=== PATIENT | male | born 1990 | race Caucasian/White ===

== ENCOUNTER 2016-09-05 18:39 | Emergency (ER) | payer OTHER ==
[~2016-09-05] VITALS: Ht 147.3 cm; Wt 74.5 kg
[~2016-09-05 18:39] MED LIST: IBUP-103 PO
[2016-09-05 18:43] VITALS: TEMP 36.6; Ht 147.3 cm; Wt 74.5 kg
[2016-09-05] MEDS ORDERED: SODIUM CHLORIDE 0.9% 1000ML 1,000 ML IV STA (18:56)
[2016-09-05] MEDS ORDERED: GI COCKTAIL PO STA (18:56)
[2016-09-05] MEDS ORDERED: FAMOTIDINE 20 MG TAB PO STA (18:56)
[2016-09-05] MEDS ORDERED: SUCRALFATE 1 GM TAB PO STA (18:56)
--- NOTE | 2016-09-05 18:57 | EMERGENCY ROOM VISIT NOTE ---
History Report prepared by Rene: Mony Rhodes Under the Supervision of: Dr. Mitesh Mills M.D. First contact with patient: 18:49 Chief Complaint: PAIN (GENERALIZED) Stated Complaint: PAIN IN JAW TRAVELS TO CHEST,SORE THROAT History of Present Illness The patient is a 26 year old male who presents to the Emergency Room with complaints of a constant sore throat beginning 1 week ago. The patient states that over the last week his pain has worsened and has traveled into his jaw and is now into his chest. He reports a history of hypertension and denies any personal cardiac history. He complains of jaw pain, difficulty swallowing on the right side, and chest pain. The patient notes that he has a family history of heart disease and his mother had a heart attack at 38 years old. He describes his chest pain and notes that it feels like he was punched in the chest. He notes that his pain is worsened when he takes a deep breath. Source of History: patient Onset: 1 week ago Position: throat Quality: other (sore) Timing: constant Modifying Factors (Worsening): breathing (deep) Associated Symptoms: + chest pain Note: Pt complains of jaw pain and difficulty swallowing. Review of Systems See HPI for pertinent positives & negatives. A total of 10 systems reviewed and were otherwise negative. 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 kidney (3) Kidney stone (4) Renal colic (5) Ureteral calculus, right (6) UTI (lower urinary tract infection) Surgical Problems: (1) H/O lithotripsy (2) History of mandibular surgery (3) History of tonsillectomy and adenoidectomy Family History Heart disease Social History Smoking Status: Never Smoker Drug Use: none Marital Status: in relationship Housing Status: lives with significant other Occupation Status: employed Current/Historical Medications Scheduled Famotidine (Pepcid), 40 MG PO HS Scheduled PRN Hydrocodone W/ Homatropine (Hycodan 5/1.5MG 5 Ml), 5 ML PO HS PRN for Pain Allergies Coded Allergies: No Known Allergies (Verified , 01/18/16) Physical Exam Vital Signs Date Time Temp Pulse Resp B/P Pulse Ox O2 Delivery O2 Flow Rate FiO2 09/05/16 21:23 78 18 124/72 98 09/05/16 20:48 72 18 135/97 98 Room Air 09/05/16 19:48 76 18 137/102 96 Room Air 09/05/16 19:17 98 Room Air 09/05/16 19:17 98 Room Air 09/05/16 19:13 93 09/05/16 18:43 36.6 79 18 204/121 97 Room Air Physical Exam GENERAL: Patient is a healthy-appearing well-nourished HEAD: Normocephalic atraumatic EYES: Ocular movements intact pupils equal and react to light OROPHARYNX mucous membranes are moist no exudates present no erythema or edema present NECK: Supple no nuchal rigidity CHEST: Good equal expansion LUNGS: Clear and equal to auscultation CARDIAC: Normal S1 and S2 ABDOMEN: Soft nontender no guarding BACK: No CVA tenderness EXTREMITIES: No pain upon palpation normal muscle strength in all groups no clubbing cyanosis or edema NEURO: Patient is following commands is answering questions appropriately. Alert and oriented x3 Cranial Nerves 2-12 grossly intact Medical Decision & Procedures ER Provider Diagnostic Interpretation: Radiology results as stated below per my review and radiologist interpretation: SOFT TISSUE NECK FINDINGS: The trachea is midline and is patent. Straightening of the cervical spine. Prevertebral soft tissues and the epiglottis are normal in thickness. No radiopaque foreign bodies. The contours of the hypopharynx are within normal limits. IMPRESSION: No significant abnormality within the neck. Electronically signed by: Ashkan Starkey M.D. 09/05/2016 8:16 PM Dictated Date/Time: 09/05/2016 8:14 PM CHEST CTA for AORTIC DISSECTION FINDINGS: Normal caliber thoracic aorta with no evidence for dissection. No pleural or pericardial effusions. The heart is normal in size. The central pulmonary arteries are patent. 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 No mediastinal or hilar lymphadenopathy. The visualized liver, spleen, and adrenal glands are within normal limits. Severe right hydronephrosis has improved. This is considered a chronic finding. No fractures within the visualized osseous structures. No pneumothorax. The central airways are patent. Small peripheral densities seen within the lung bases favor atelectasis. IMPRESSION: 1. No evidence for an aortic dissection. 2. Small peripheral densities within the lung bases favor atelectasis. 3. Improvement in the severe chronic right-sided hydronephrosis. 4. The central pulmonary arteries are patent. Electronically signed by: Ashkan Starkey M.D. 09/05/2016 7:56 PM Dictated Date/Time: 09/05/2016 7:49 PM Laboratory Results 09/05/16 19:10 Red Blood Count 5.05, Mean Corpuscular Volume 88.5, Mean Corpuscular Hemoglobin 30.9, Mean Corpuscular Hemoglobin Concent 34.9, Mean Platelet Volume 9.5, Neutrophils (%) (Auto) 57.9, Lymphocytes (%) (Auto) 32.5, Monocytes (%) (Auto) 6.9, Eosinophils (%) (Auto) 1.8, Basophils (%) (Auto) 0.9, Neutrophils # (Auto) 3.16, Lymphocytes # (Auto) 1.78, Monocytes # (Auto) 0.38, Eosinophils # (Auto) 0.10, Basophils # (Auto) 0.05 09/05/16 19:10 Test 09/05/16 19:10 09/05/16 19:18 White Blood Count 5.47 K/uL (4.8-10.8) Red Blood Count 5.05 M/uL (4.7-6.1) Hemoglobin 15.6 g/dL (14.0-18.0) Hematocrit 44.7 % (42-52) Mean Corpuscular Volume 88.5 fL (80-100) Mean Corpuscular Hemoglobin 30.9 pg (25-34) Mean Corpuscular Hemoglobin Concent 34.9 g/dl (32-36) Platelet Count 255 K/uL (130-400) Mean Platelet Volume 9.5 fL (7.4-10.4) Neutrophils (%) (Auto) 57.9 % Lymphocytes (%) (Auto) 32.5 % Monocytes (%) (Auto) 6.9 % Eosinophils (%) (Auto) 1.8 % Basophils (%) (Auto) 0.9 % Neutrophils # (Auto) 3.16 K/uL (1.4-6.5) Lymphocytes # (Auto) 1.78 K/uL (1.2-3.4) Monocytes # (Auto) 0.38 K/uL (0.11-0.59) Eosinophils # (Auto) 0.10 K/uL (0-0.5) Basophils # (Auto) 0.05 K/uL (0-0.2) RDW Standard Deviation 40.9 fL (36.4-46.3) RDW Coefficient of Variation 12.7 % (11.5-14.5) Immature Granulocyte % (Auto) 0.0 % Immature Granulocyte # (Auto) 0.00 K/uL (0.00-0.02) Est Creatinine Clear Calc Drug Dose 102.0 ml/min Estimated GFR () 136.1 Estimated GFR (Non- 117.5 BUN/Creatinine Ratio 11.1 (10-20) Calcium Level 9.0 mg/dl (8.5-10.1) Total Bilirubin 0.3 mg/dl (0.2-1) Direct Bilirubin 0.1 mg/dl (0-0.2) Aspartate Amino Transf (AST/SGOT) 14 U/L (15-37) Alanine Aminotransferase (ALT/SGPT) 31 U/L (12-78) Alkaline Phosphatase 71 U/L (45-117) Total Creatine Kinase 170 U/L (39-308) Creatine Kinase MB 1.5 ng/ml (0.5-3.6) Creatine Kinase MB Ratio 0.9 (0-3.0) Troponin I < 0.015 ng/ml (0-0.045) Total Protein 7.1 gm/dl (6.4-8.2) Albumin 3.9 gm/dl (3.4-5.0) Lipase 139 U/L (73-393) Bedside Hemoglobin 14.3 g/dl (14.0-18.0) Bedside Hematocrit 42 % (42-52) Bedside Sodium 141 mEq/L (135-144) Bedside Potassium 3.7 mEq/L (3.3-5.0) Bedside Chloride 102 mEq/L (101-112) Bedside Total CO2 23 mEq/l (24-31) Anion Gap 21.0 mmol/L (16-25) Bedside Blood Urea Nitrogen 9 mg/dl (7-18) Bedside Creatinine 0.8 mg/dl (0.6-1.3) Bedside Glucose (other) 126 mg/dl (70-99) Bedside Ionized Calcium ([place]) 1.20 mmol/l (1.12-1.32) Labs reviewed by ED physician. Medications Administered Medications (Trade) Dose Ordered Sig/Rudy Route Start Time Stop Time Status Last Admin Dose Admin Sodium Chloride (Nss 1000ml) 1,000 ml @ 999 mls/hr Q1H1M STAT IV 09/05/16 18:56 09/05/16 19:56 DC 09/05/16 19:09 999 MLS/HR Famotidine (Pepcid Tab) 20 mg NOW STAT PO 09/05/16 18:56 09/05/16 18:59 DC 09/05/16 19:09 20 MG Sucralfate (Carafate Tab) 1 gm NOW STAT PO 09/05/16 18:56 09/05/16 18:59 DC 09/05/16 19:09 1 GM Al Hydroxide/Mg Hydroxide (Maalox Susp) 30 ml STK-MED ONCE .ROUTE 09/05/16 19:03 09/05/16 19:04 DC 09/05/16 19:08 30 ML Lidocaine HCl (Viscous Lidocaine 2% Soln) 20 ml STK-MED ONCE .ROUTE 09/05/16 19:04 09/05/16 19:05 DC 09/05/16 19:08 20 ML Hydrocodone Bit/ Homatropine Methylb (Hycodan Elix Homepack 5/1.5MG/ 5ML) 1 homepack UD ONCE PO 09/05/16 21:15 09/05/16 21:16 DC 09/05/16 21:08 1 HOMEPACK Hydrocodone Bit/ Homatropine Methylb (Hycodan Syrup) 5 ml NOW STAT PO 09/05/16 21:03 09/05/16 21:04 DC 09/05/16 21:08 5 ML ECG Indication: chest pain Rate (beats per minute): 74 Rhythm: normal sinus Findings: no acute ischemic change, no ectopy ED Course 1848: Past medical records reviewed. The patient was evaluated in room A12B. A complete history and physical examination was performed. 1855: Carafate Tab 1gm PO, Pepcid Tab 20mg PO, GI Cocktail 24ml PO, Sodium Chloride 1000 ml @ 999 mls/hr IV. 2100: I reevaluated the patient and he is resting comfortably. 2102: Hycodan Syrup 5ml PO. 2114: Hydrocodone Bit/Homatropine Methylb 1 homepack PO. 2116: Upon reexamination the patient is doing well. I discussed results and treatment plan with the patient. He verbalizes agreement and understanding. The patient is ready for discharge. Medical Decision Differential diagnosis: Etiologies such as cardiac ischemia, aortic dissection, pulmonary embolism, pneumonia, pneumothorax, musculoskeletal, infections, pericarditis, myocarditis , esophageal rupture, gastrointestinal, as well as others were entertained. This is a 18-year-old male who presents emergency department complaining of throat and chest pain. The patient reports he began having throat pain that steadily moved down into his chest area. The patient states he takes no medication however he then stated he does take Pepcid. He was given a GI cocktail, Pepcid and Carafate. Repeat examination revealed improvement patient' s symptoms. I will note that the patient was evaluated for chest pain here back in March and based on this I felt that the patient could follow-up with cardiology. As the pain is been going on for several days and expect his troponin to be elevated if this were related to cardiac ischemia. As such it is not. The patient also has a normal EKG. He was sent for CAT scan of the chest due to his hypertension. This did not show any acute process. I believe based on these findings at the patient can be safely discharged home. He will be given Hycodan for the throat pain and I recommended a clear liquid diet along with Maalox for the next 48 hours. Patient was in agreement with the treatment plan. Impression Primary Impression: Throat pain Scribe Attestation The scribe's documentation has been prepared under my direction and personally reviewed by me in its entirety. I confirm that the note above accurately reflects all work, treatment, procedures, and medical decision making performed by me. Departure Information Dispostion Home / Self-Care Prescriptions Hydrocodone W/ Homatropine (HYCODAN 5/1.5MG 5 ML) 1 Syp Syp 5 ML PO HS Y for Pain, #120 ML Prov: Mitesh Mills MD 09/05/16 Famotidine (Pepcid) 40 Mg Tab 40 MG PO HS for 10 Days, #10 TAB Prov: Mitesh Mills MD 09/05/16 Referrals Herbie Torre M.D. (PCP) Forms HOME CARE DOCUMENTATION FORM, IMPORTANT VISIT INFORMATION, WORK / SCHOOL INSTRUCTIONS Patient Instructions Chest Pain - [facility], Hypertension Fl, My [facility] Additional Instructions Clear liquid diet next 48 hours Take 5 ml Maalox before every meal and at bedtime Need follow up with DR Guzmán's office No strenuous activity until follow up Need follow up with DR Torre for hypertension You have been examined and treated today on an emergency basis only. This is not a substitute for, or an effort to provide, complete comprehensive medical care. It is impossible to recognize and treat all injuries or illnesses in a single emergency department visit. It is therefore important that you follow up closely with Dr Torre. Call as soon as possible for an appointment. Thank you for your time and consideration. I look forward to speaking with you again soon. Please don't hesitate to call us if you have any questions.
[2016-09-05] MEDS ORDERED: ALUMINUM/MAGNESIUM SUSP 30 ML UDC ONE (19:03)
[2016-09-05] MEDS ORDERED: LIDOCAINE HCL 2% VISC SOLN 20 ML UDC ONE (19:04)
[2016-09-05] MEDS ORDERED: OPTIRAY 320 IV PRN (19:15)
[2016-09-05 19:17] VITALS: O2SAT 98
[2016-09-05 19:21] LABS: BASO % 0.9 %; BASO ABS # 0.05 K/uL (0-0.2); COMPLETE YES; EOS % 1.8 %; HEMATOCRIT 44.7 % (42-52); LYMPH % 32.5 %; LYMPH ABS # 1.78 K/uL (1.2-3.4); MEAN CELL VOLUME 88.5 fL (80-100); MEAN CORPUSCULAR HEMOGLOBIN 30.9 pg (25-34); MEAN CORPUSCULAR HGB CONC 34.9 g/dl (32-36); MEAN PLATELET VOLUME 9.5 fL (7.4-10.4); MONO % 6.9 %; NEUT % 57.9 %; PLATELET COUNT 255 K/uL (130-400); RED BLOOD COUNT 5.05 M/uL (4.7-6.1); WHITE BLOOD COUNT 5.47 K/uL (4.8-10.8)
[2016-09-05 19:33] LABS: ISTAT CREATININE 0.8 mg/dl (0.6-1.3); ISTAT HEMOGLOBIN 14.3 g/dl (14.0-18.0); ISTAT IONIZED CALCIUM 1.2 mmol/l (1.12-1.32)
[2016-09-05 19:42] LABS: ALT/SGPT 31 U/L (12-78); AST/SGOT 14 U/L (15-37); BLOOD UREA NITROGEN 10 mg/dl (7-18); BUN/CREATININE RATIO 11.1 (10-20); CARBON DIOXIDE 27 mmol/L (21-32); CHLORIDE 107 mmol/L (98-107); CREATININE 0.87 mg/dl (0.60-1.40); GLUCOSE 122 mg/dl (70-99); POTASSIUM 3.7 mmol/L (3.5-5.1); SODIUM 141 mmol/L (136-145)
[2016-09-05 19:47] LABS: ALKALINE PHOSPHATASE 71 U/L (45-117); CKMB/CK RATIO 0.9 (0-3.0)
--- NOTE | 2016-09-05 19:58 | DIAGNOSTIC IMAGING REPORT ---
CHEST CTA for AORTIC DISSECTION CT DOSE: 698.09 mGy.cm HISTORY: Atypical chest pain. TECHNIQUE: Multiaxial CT images of the chest were performed both before and after the intravenous administration of contrast to evaluate the aorta. Maximal intensity projection images were also obtained. COMPARISON STUDY: Abdomen and pelvis CT 11/04/2015. FINDINGS: Normal caliber thoracic aorta with no evidence for dissection. No pleural or pericardial effusions. The heart is normal in size. The central pulmonary arteries are patent. 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 No mediastinal or hilar lymphadenopathy. The visualized liver, spleen, and adrenal glands are within normal limits. Severe right hydronephrosis has improved. This is considered a chronic finding. No fractures within the visualized osseous structures. No pneumothorax. The central airways are patent. Small peripheral densities seen within the lung bases favor atelectasis. IMPRESSION: 1. No evidence for an aortic dissection. 2. Small peripheral densities within the lung bases favor atelectasis. 3. Improvement in the severe chronic right-sided hydronephrosis. 4. The central pulmonary arteries are patent. Electronically signed by: Ashkan Starkey M.D. 09/05/2016 7:56 PM Dictated Date/Time: 09/05/2016 7:49 PM
--- NOTE | 2016-09-05 20:18 | DIAGNOSTIC IMAGING REPORT ---
SOFT TISSUE NECK CLINICAL HISTORY: Neck pain. COMPARISON STUDY: None. FINDINGS: The trachea is midline and is patent. Straightening of the cervical spine. Prevertebral soft tissues and the epiglottis are normal in thickness. No radiopaque foreign bodies. The contours of the hypopharynx are within normal limits. IMPRESSION: No significant abnormality within the neck. Electronically signed by: Ashkan Starkey M.D. 09/05/2016 8:16 PM Dictated Date/Time: 09/05/2016 8:14 PM
[2016-09-05] MEDS ORDERED: HYDROCODONE/HOMATROPINE SYRUP 5MG/1.5MG 5ML UDP PO STA (21:03)
[2016-09-05] MEDS ORDERED: HYDR5SYP11 PO (21:04)
[2016-09-05] MEDS ORDERED: FAMO40TA6 PO (21:04)
[2016-09-05] MEDS ORDERED: HYCODAN 60ML BOTTLE HOMEPACK PO ONE (21:15)
[2016-09-05 21:23] VITALS: BP 124/72; PULSE 78; O2SAT 98
== END 2016-09-05 21:25 | disposition home or self-care (01) ==
LOC: C.EDB 18:41 → C.EDA 21:25
DX: R07.0 Pain in throat (principal); Z87.442 Personal history of urinary calculi; Z87.440 Personal history of urinary (tract) infections; Z98.890 Other specified postprocedural states; Z82.49 Family history of ischemic heart disease and other diseases of the circulatory system

== ENCOUNTER 2017-02-01 19:33 | Emergency (ER) | payer OTHER ==
[~2017-02-01] VITALS: Ht 147.3 cm; Wt 72.8 kg
[2017-02-01 19:56] VITALS: TEMP 36.7; Ht 147.3 cm; Wt 72.8 kg
[2017-02-01] MEDS ORDERED: KETOROLAC TROMETHAMINE 30 MG/ML VIAL IV STA (21:19)
[2017-02-01] MEDS ORDERED: HYDROmorphone INJ 0.5 MG/0.5 ML SYR IV PRN (21:30)
[2017-02-01 21:54] LABS: URINE APPEARANCE CLOUDY (CLEAR); URINE BILIRUBIN NEG (NEG); URINE COLOR YELLOW; URINE NITRITE NEG (NEG); URINE PH 6.5 (4.5-7.5); URINE SPECIFIC GRAVITY 1.022 (1.000-1.030); UROBILINOGEN NEG (NEG); ZZUR CULT IF INDIC CLEAN CATCH NO
[2017-02-01 22:00] LABS: BASO % 0.9 %; BASO ABS # 0.06 K/uL (0-0.2); COMPLETE YES; EOS % 2.1 %; HEMATOCRIT 46.2 % (42-52); IG% 0.2 %; LYMPH % 29.8 %; LYMPH ABS # 1.95 K/uL (1.2-3.4); MEAN CELL VOLUME 88.5 fL (80-100); MEAN CORPUSCULAR HEMOGLOBIN 30.7 pg (25-34); MEAN CORPUSCULAR HGB CONC 34.6 g/dl (32-36); MEAN PLATELET VOLUME 9.3 fL (7.4-10.4); MONO % 7.5 %; NEUT % 59.5 %; PLATELET COUNT 215 K/uL (130-400); RED BLOOD COUNT 5.22 M/uL (4.7-6.1); WHITE BLOOD COUNT 6.55 K/uL (4.8-10.8)
[2017-02-01 22:12] LABS: MANUAL MICROSCOPIC REQUIRED? NO; REVIEW REQ? NO
[2017-02-01 22:17] LABS: ALT/SGPT 36 U/L (12-78); BLOOD UREA NITROGEN 16 mg/dl (7-18); BUN/CREATININE RATIO 18.5 (10-20); CALCIUM 8.9 mg/dl (8.5-10.1); CARBON DIOXIDE 28 mmol/L (21-32); CHLORIDE 109 mmol/L (98-107); CREATININE 0.86 mg/dl (0.60-1.40); GLUCOSE 137 mg/dl (70-99); POTASSIUM 3.4 mmol/L (3.5-5.1); SODIUM 142 mmol/L (136-145)
[2017-02-01 22:19] LABS: ALKALINE PHOSPHATASE 70 U/L (45-117); AST/SGOT 21 U/L (15-37)
[2017-02-01] MEDS ORDERED: IBUP-1050 PO (22:19)
--- NOTE | 2017-02-01 23:22 | DIAGNOSTIC IMAGING REPORT ---
ABD/PELVIS WITHOUT FOR STONE CLINICAL HISTORY: 27 years-old Male presenting with right flank pain. TECHNIQUE: Multidetector CT of the abdomen and pelvis was performed without the use of intravenous contrast. IV contrast: None. A dose lowering technique was used consistent with the principles of ALARA (as low as reasonably achievable). COMPARISON: 11/04/2015. CT DOSE (mGy.cm): The estimated cumulative dose is 360.75 mGy.cm. FINDINGS: Financial Analysis Consultant topogram: Unremarkable. Lung bases: Lung bases clear. Normal heart size. No pericardial or pleural effusion. Liver: Normal morphology. Normal density. Biliary: No gross biliary ductal dilatation allowing for noncontrast technique. Gallbladder decompressed. Pancreas: Normal noncontrast appearance. Spleen: Normal noncontrast appearance. Adrenal glands: Normal noncontrast appearance. Kidneys and ureters: Chronic severe right hydroureteronephrosis without gross evidence of an obstructing mass or calculus. The right renal collecting system is overall less dilated than on prior exam. Prominent right lower pole nephrolithiasis. Urothelial thickening noted on the right, overall similar to prior. No perinephric or periureteral fat stranding. Chronic cortical thinning evidence of atrophy on the right. Multiple nonobstructing left renal calculi, the largest at the lower pole measuring 3 mm. No left hydronephrosis. Left ureter normal. Well-defined hypodensity in the left kidney anteriorly near the upper pole, indeterminate but likely cyst, unchanged. Bladder: Incompletely evaluated secondary to underdistention. Pelvic organs: Prostate and seminal vesicles normal. Bowel: Normal appendix. No bowel obstruction. Peritoneal cavity: No free fluid or intraperitoneal gas. Lymph nodes: No gross lymphadenopathy allowing for noncontrast technique. Vasculature: Normal noncontrast appearance. Abdominal wall: Normal. Musculoskeletal: Normal. IMPRESSION: 1. Chronic severe right hydroureteronephrosis with an overall less distended right renal collecting system than on prior exam. Chronic urothelial thickening and right renal atrophy. No findings to suggest acute upper tract infection or recent passage of a calculus. No obstructing mass or stone. 2. Bilateral nephrolithiasis. Electronically signed by: Uziel Murray M.D. 02/01/2017 11:20 PM Dictated Date/Time: 02/01/2017 11:13 PM
[2017-02-01] MEDS ORDERED: OXYCODONE IR HOME PACK PO ONE (23:45)
[2017-02-01] MEDS ORDERED: OXYC1TAB3 PO (23:46)
[2017-02-02 00:01] VITALS: BP 156/97; PULSE 84; O2SAT 94
--- NOTE | 2017-02-02 03:31 | EMERGENCY ROOM VISIT NOTE ---
History Report prepared by Rene: Huan Torres Under the Supervision of: Dr. Everette Brown M.D. First contact with patient: 20:48 Chief Complaint: FLANK PAIN Stated Complaint: SEVER PAIN IN LOWER RIGHT SIDE OF BACK History of Present Illness The patient is a 27 year old male who presents to the Emergency Room with complaints of constant right flank and back pain. He currently rates his discomfort as a 9/10 in severity. The patient states that the pain is similar to his past kidney stones, and he states that the last kidney stone he had was a year ago. He states that he took Tylenol and ibuprofen this morning. Pt denies LOC, headache, fevers, chills, diaphoresis, visual changes, neck pain, chest pain, breathing difficulties, nausea, vomiting, abdominal pain, melena, hematochezia, urinary symptoms, numbness, weakness, lymphadenopathy, rash, or other complaints. Source of History: patient Onset: yesterday Position: back (right), other (right flank) Symptom Intensity: 910 Timing: constant Review of Systems See HPI for pertinent positives and negatives. A total of ten systems were reviewed and were otherwise negative. 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 kidney (3) Kidney stone (4) Renal colic (5) Ureteral calculus, right (6) UTI (lower urinary tract infection) Surgical Problems: (1) H/O lithotripsy (2) History of mandibular surgery (3) History of tonsillectomy and adenoidectomy Family History Heart disease Social History Smoking Status: Never Smoker Drug Use: none Marital Status: in relationship Housing Status: lives with significant other Occupation Status: employed Current/Historical Medications Scheduled PRN Ibuprofen (Advil), 200-600 MG PO Q4H PRN for Pain Oxycodone Ir (Roxicodone Ir), 1-2 TAB PO Q4H PRN for Pain Allergies Coded Allergies: No Known Allergies (Verified , 02/01/17) Physical Exam Vital Signs Date Time Temp Pulse Resp B/P (MAP) Pulse Ox O2 Delivery O2 Flow Rate FiO2 02/02/17 00:01 84 18 156/97 94 Room Air 02/01/17 23:36 88 18 152/93 97 02/01/17 21:44 80 02/01/17 21:34 81 18 152/99 94 Room Air 02/01/17 19:56 36.7 88 20 157/90 96 Room Air Physical Exam GENERAL: Awake, alert, well-appearing, in no distress HENT: Normocephalic, atraumatic. Oropharynx unremarkable. EYES: Normal conjunctiva. Sclera non-icteric. NECK: Supple. No nuchal rigidity. FROM. No JVD. RESPIRATORY: Clear to auscultation. CARDIAC: Regular rate, normal rhythm. Extremities warm and well perfused. Pulses equal. ABDOMEN: Soft, non-distended. No tenderness to palpation. No rebound or guarding. No masses. RECTAL: Deferred. MUSCULOSKELETAL: Chest examination reveals no tenderness. The back is symmetrical on inspection without obvious abnormality. Right CVA tenderness. No joint edema. LOWER EXTREMITIES: Calves are equal size bilaterally and non-tender. No edema. No discoloration. NEURO: Normal sensorium. No sensory or motor deficits noted. SKIN: No rash or jaundice noted. Medical Decision & Procedures ER Provider Diagnostic Interpretation: Radiology results as stated below per my review and radiologist interpretation: ABD/PELVIS WITHOUT FOR STONE CLINICAL HISTORY: 27 years-old Male presenting with right flank pain. TECHNIQUE: Multidetector CT of the abdomen and pelvis was performed without the use of intravenous contrast. IV contrast: None. A dose lowering technique was used consistent with the principles of ALARA (as low as reasonably achievable). COMPARISON: 11/04/2015. CT DOSE (mGy.cm): The estimated cumulative dose is 360.75 mGy.cm. FINDINGS: Hot Knife Fox[place] Cutter topogram: Unremarkable. Lung bases: Lung bases clear. Normal heart size. No pericardial or pleural effusion. Liver: Normal morphology. Normal density. Biliary: No gross biliary ductal dilatation allowing for noncontrast technique. Gallbladder decompressed. Pancreas: Normal noncontrast appearance. Spleen: Normal noncontrast appearance. Adrenal glands: Normal noncontrast appearance. Kidneys and ureters: Chronic severe right hydroureteronephrosis without gross evidence of an obstructing mass or calculus. The right renal collecting system is overall less dilated than on prior exam. Prominent right lower pole nephrolithiasis. Urothelial thickening noted on the right, overall similar to prior. No perinephric or periureteral fat stranding. Chronic cortical thinning evidence of atrophy on the right. Multiple nonobstructing left renal calculi, the largest at the lower pole measuring 3 mm. No left hydronephrosis. Left ureter normal. Well-defined hypodensity in the left kidney anteriorly near the upper pole, indeterminate but likely cyst, unchanged. Bladder: Incompletely evaluated secondary to underdistention. Pelvic organs: Prostate and seminal vesicles normal. Bowel: Normal appendix. No bowel obstruction. Peritoneal cavity: No free fluid or intraperitoneal gas. Lymph nodes: No gross lymphadenopathy allowing for noncontrast technique. Vasculature: Normal noncontrast appearance. Abdominal wall: Normal. Musculoskeletal: Normal. IMPRESSION: 1. Chronic severe right hydroureteronephrosis with an overall less distended right renal collecting system than on prior exam. Chronic urothelial thickening and right renal atrophy. No findings to suggest acute upper tract infection or recent passage of a calculus. No obstructing mass or stone. 2. Bilateral nephrolithiasis. Electronically signed by: Uziel Murray M.D. 02/01/2017 11:20 PM Dictated Date/Time: 02/01/2017 11:13 PM Laboratory Results 02/01/17 21:40 Red Blood Count 5.22, Mean Corpuscular Volume 88.5, Mean Corpuscular Hemoglobin 30.7, Mean Corpuscular Hemoglobin Concent 34.6, Mean Platelet Volume 9.3, Neutrophils (%) (Auto) 59.5, Lymphocytes (%) (Auto) 29.8, Monocytes (%) (Auto) 7.5, Eosinophils (%) (Auto) 2.1, Basophils (%) (Auto) 0.9, Neutrophils # (Auto) 3.90, Lymphocytes # (Auto) 1.95, Monocytes # (Auto) 0.49, Eosinophils # (Auto) 0.14, Basophils # (Auto) 0.06 02/01/17 21:40 Test 02/01/17 21:30 02/01/17 21:40 Urine Color YELLOW Urine Appearance CLOUDY (CLEAR) Urine pH 6.5 (4.5-7.5) Urine Specific [place] 1.022 (1.000-1.030) Urine Protein NEG (NEG) Urine Glucose (UA) NEG (NEG) Urine Ketones NEG (NEG) Urine Occult Blood NEG (NEG) Urine Nitrite NEG (NEG) Urine Bilirubin NEG (NEG) Urine Urobilinogen NEG (NEG) Urine Leukocyte Esterase TRACE (NEG) Urine WBC (Auto) 1-5 /hpf (0-5) Urine RBC (Auto) 0-4 /hpf (0-4) Urine Hyaline Casts (Auto) 1-5 /lpf (0-5) Urine Epithelial Cells (Auto) 5-10 /lpf (0-5) Urine Bacteria (Auto) NEG (NEG) White Blood Count 6.55 K/uL (4.8-10.8) Red Blood Count 5.22 M/uL (4.7-6.1) Hemoglobin 16.0 g/dL (14.0-18.0) Hematocrit 46.2 % (42-52) Mean Corpuscular Volume 88.5 fL (80-100) Mean Corpuscular Hemoglobin 30.7 pg (25-34) Mean Corpuscular Hemoglobin Concent 34.6 g/dl (32-36) Platelet Count 215 K/uL (130-400) Mean Platelet Volume 9.3 fL (7.4-10.4) Neutrophils (%) (Auto) 59.5 % Lymphocytes (%) (Auto) 29.8 % Monocytes (%) (Auto) 7.5 % Eosinophils (%) (Auto) 2.1 % Basophils (%) (Auto) 0.9 % Neutrophils # (Auto) 3.90 K/uL (1.4-6.5) Lymphocytes # (Auto) 1.95 K/uL (1.2-3.4) Monocytes # (Auto) 0.49 K/uL (0.11-0.59) Eosinophils # (Auto) 0.14 K/uL (0-0.5) Basophils # (Auto) 0.06 K/uL (0-0.2) RDW Standard Deviation 40.9 fL (36.4-46.3) RDW Coefficient of Variation 12.8 % (11.5-14.5) Immature Granulocyte % (Auto) 0.2 % Immature Granulocyte # (Auto) 0.01 K/uL (0.00-0.02) Nucleated RBC Absolute Count (auto) 0.05 K/uL (0-0) Nucleated Red Blood Cells % 0.7 % Anion Gap 6.0 mmol/L (3-11) Est Creatinine Clear Calc Drug Dose 101.0 ml/min Estimated GFR () 135.8 Estimated GFR (Non- 117.2 BUN/Creatinine Ratio 18.5 (10-20) Calcium Level 8.9 mg/dl (8.5-10.1) Total Bilirubin 0.3 mg/dl (0.2-1) Direct Bilirubin < 0.1 mg/dl (0-0.2) Aspartate Amino Transf (AST/SGOT) 21 U/L (15-37) Alanine Aminotransferase (ALT/SGPT) 36 U/L (12-78) Alkaline Phosphatase 70 U/L (45-117) Total Protein 7.1 gm/dl (6.4-8.2) Albumin 3.8 gm/dl (3.4-5.0) Lipase 141 U/L (73-393) Laboratory results reviewed by me Medications Administered Medications (Trade) Dose Ordered Sig/Rudy Route Start Time Stop Time Status Last Admin Dose Admin Hydromorphone HCl (Dilaudid Inj) 0.5 mg Q15M PRN IV 02/01/17 21:30 02/02/17 00:16 DC 02/01/17 21:54 0.5 MG Ketorolac Tromethamine (Toradol Inj) 10 mg NOW STAT IV 02/01/17 21:19 02/01/17 21:21 DC 02/01/17 21:53 10 MG ED Course 2117: The patient was evaluated in room C8. A complete history and physical exam was performed. 2118: Toradol Inj 10mg IV 2129: Dilaudid Inj 0.5mg IV 3: I reevaluated the patient, and he was feeling comfortable. 2344: Oxycodone HCl 1 Home Pack PO 2348: I reevaluated the patient. Discussed results and discharge instructions: He verbalized understanding and agreement. He will follow up with Dr. Curtis. The patient is ready for discharge. Medical Decision Prior records/ancillary studies reviewed. Triage Nursing notes reviewed and agree them. The patient's history was concerning for flank and abdominal pain. Differential diagnosis: Etiologies such as renal colic, appendicitis, diverticulitis, mesenteric ischemia, aortic pathology, infections, inflammatory bowel disease, PUD, biliary pathology, UTI, as well as others were entertained. Physical examination findings: As above. ER treatment provided: IV Dilaudid IV Zofran IV Toradol On reassessment the patient felt better. Diagnostic interpretation by me: The labs revealed an unremarkable CBC and chemistry panel Urinalysis revealed no sign of UTI. Imaging studies: CT of the abdomen and pelvis as above. The patient has chronic issues on the right side with hydro-and hydroureter. He has performed a significant stone in the right kidney. This is new from last year. The patient is comfortable at this point time there is no sign of infection. He has no ureteral stone that is obvious. He feels comfortable with conservative management. He will be prescribed oxycodone and he will contact his urologist tomorrow. If he worsens in any way he will be back to the emergency department for reevaluation. By the evaluation outlined above emergent etiologies such as appendicitis, diverticulitis, mesenteric ischemia, aortic pathology, infections, inflammatory bowel disease, PUD, biliary pathology, UTI, as well as others were deemed relatively unlikely. The patient was informed about the findings as listed above. All questions were answered and he was pleased with the treatment. Return instructions were outlined and the patient was discharged in stable condition. Outpatient prescription management: Oxy IR 5mg 1-2 po Q4 hrs prn Referral: The pt was referred to [facility] for follow up care regarding their stone. Medication Reconcilliation Current Medication List: was personally reviewed by me Blood Pressure Screening Patient's blood pressure: Elevated blood pressure Blood pressure disposition: Elevated BP felt to be situational Impression Primary Impression: Right flank pain Additional Impressions: Nephrolithiasis Hydroureter Scribe Attestation The scribe's documentation has been prepared under my direction and personally reviewed by me in its entirety. I confirm that the note above accurately reflects all work, treatment, procedures, and medical decision making performed by me. Departure Information Dispostion Home / Self-Care Prescriptions Oxycodone Ir (Roxicodone Ir) 5 Mg Tab 1-2 TAB PO Q4H Y for Pain, #12 TAB Prov: Everette Brown MD 02/01/17 Referrals Herbie Torre M.D. (PCP) Forms HOME CARE DOCUMENTATION FORM, IMPORTANT VISIT INFORMATION Patient Instructions My [facility] Additional Instructions KIDNEY STONE INSTRUCTIONS: Oxycodone Immediate Release (OxyIR) 5mg: Take 1-2 pills every four hours for pain. Avoid alcohol, operating machinery or dangerous equipment, working on ladders or roofs, DRIVING, or situations where being under the influence may be dangerous. It is recommended to use an vhby-smo-vlagfum stool softener such as Colace, 100mg twice daily while taking this medication to avoid constipation. Ibuprofen(Motrin, Advil) may be used for fever or pain. Use 600mg every six hours as needed. Take with food. Avoid using more than 2400mg in a 24 hour period. Do not use 2400mg per day for more than three consecutive days without physician direction. Prolonged inappropriate use can lead to stomach upset or ulcers. This medication can be taken if you need to drive, work, or perform activities which may be dangerous when taking narcotic pain medication. (AND/OR) Acetaminophen(Tylenol) may be used for fever or pain. Use 1000mg every six hours as needed. Avoid using more than 4000mg in a 24 hour period. This medication can be taken if you need to drive, work, or perform activities which may be dangerous when taking narcotic pain medication. Strain your urine and collect all the stones or debris for the urologists. Rest and avoid strenuous activity until your stone passes and symptoms resolve. Drink plenty of fluids. Return to the ER for worsening abdominal or back pain, vomiting, fevers, passing out, or as needed. Follow up with [facility] tomorrow, [phone], to arrange a visit. Problem Qualifiers
== END 2017-02-02 00:01 | disposition home or self-care (01) ==
LOC: C.EDB 19:35 → C.EDC 02-02 00:01
DX: N13.2 Hydronephrosis with renal and ureteral calculous obstruction (principal); Q77.4 Achondroplasia; Z87.440 Personal history of urinary (tract) infections

== ENCOUNTER → 2017-04-22 | Outpatient (CLI) | payer OTHER ==
[~2017-04-22] MED LIST changes: +HYDR-5688 PO; -IBUP-103 PO; +IBUP-1050 PO; +OXYC-90 PO
--- NOTE | 2017-04-22 12:34 | DIAGNOSTIC IMAGING REPORT ---
KUB HISTORY: Right-sided kidney stones. COMPARISON: [facility] 08/09/2015. Abdomen and pelvis CT 02/01/2017. FINDINGS: The bowel gas pattern is unremarkable. There are no dilated loops of small bowel to suggest an obstruction. A stable 7 mm stone within the lower pole the left kidney. No ureteral or bladder calculi identified. Large stone within the lower pole the right kidney which measures 2.5 cm. The majority of the right renal shadow is obscured by overlying bowel gas. No pneumoperitoneum or pneumatosis. Bony changes consistent with achondroplasia. IMPRESSION: 1. Bilateral nephrolithiasis as described above. 2. No ureteral stones. Electronically signed by: Ashkan Starkey M.D. 04/22/2017 12:32 PM Dictated Date/Time: 04/22/2017 12:29 PM
== END | disposition home or self-care (01) ==
LOC: C.RADBC 12:13
PROVIDERS: ATTEND Family Medicine
DX: N20.0 Calculus of kidney (principal)

== ENCOUNTER 2024-09-18 09:27 | Observation (INO) ==
--- NOTE | 2024-09-18 10:01 | Emergency Department Note ---
Impression & Plan Flank Pain, Acute UTI, Acute pyelonephritis ED Provider Note CHIEF COMPLAINT: Left flank pain HISTORY OF PRESENTING ILLNESS: Patient is a 34-year-old male who presents to the emergency department today for evaluation of left flank pain. 3 weeks ago he reports having a stent placed in the right ureter which urology told him moved. They left that stent in and then this past he had a stent placed in the left side. He has had significant pain since and was told by urology to increase his dose of oxycodone to 10 mg which he did. He is now out of the oxycodone. He is concerned that there may be something wrong with the left stent. He reports being able to void normally without any frequency, urgency, burning. This morning he took Toradol, ibuprofen, and Tylenol without any relief. He denies chest pain, sob, breathing difficulties, abdominal pain, headache, fevers/chills, blood in stool or urine, any recent illness, or any recent travel. REVIEW OF SYSTEMS: See HPI for pertinent positives and pertinent negatives. ALLERGIES: No known allergies MEDICATIONS: Lexapro and amlodipine PAST MEDICAL HISTORY: Hypertension and anxiety PHYSICAL EXAM: GENERAL: 34-year-old male, in no acute distress, they do not appear toxic, well-developed, well-nourished. ABDOMEN: Positive bowel sounds x 4. The abdomen is soft, no tenderness in the suprapubic area, but no masses or organs are felt. There is moderate left CVA tenderness. The skin is clear. NEURO: Alert and oriented to person place and time. DIFFERENTIAL DIAGNOSIS: Differential diagnosis includes renal calculus, pyelonephritis, musculoskeletal pain, ruptured AAA, aortic dissection, diverticulitis, perforated viscus, bowel obstruction, biliary pathology, pancreatitis, PE, pneumonia, pneumothorax, trauma, herpes zoster, malignancy, among others. ED COURSE AND MEDICAL DECISION MAKING: HISTORY FROM INDEPENDENT HISTORIAN: History was provided by the patient and a friend who is at bedside. I examined the patient for complaints of left flank pain. A physical exam and history were performed. Nursing notes, EMR, and medication list were personally reviewed. MEDICATIONS GIVEN: An IV lock was placed. The patient was given morphine 2 mg, Zofran 4 mg and had some improvement with pain and improvement with nausea. I considered the use of narcotics on this patient due to uncontrolled pain with [id number] medications and Toradol. The patient did report more pain within the hour and was then given fentanyl 25 mcg. MONITOR: Continuous monitor and storage bin tender: Order was placed for continuous monitor and storage bin tender. Patient was placed on the monitor and storage bin tender and continuous pulse ox. Patient was noted to be in normal sinus rhythm at an initial rate of 94 bpm per my interpretation. INTERPRETATION OF LABS: An IV lock was placed and labs were drawn. I interpreted the labs with full lab results as below in the lab section of this note. Laboratory results pertinent to the emergent complaint are discussed in the MDM section below. The patient was advised to follow up with their PCP and/or specialist(s) for further outpatient monitoring and management of any abnormal results. There was no leukocytosis, anemia, thrombocytopenia. Normal electrolytes and renal function. The urinalysis was positive for blood, nitrates, leukocytes, white blood cells. A reflex to culture. INTERPRETATION OF IMAGING: Imaging studies were interpreted by myself and read by radiology as per the imaging section of this note. The patient was advised to follow up with their PCP and/or specialist(s) for further outpatient management of any non-emergent abnormal findings. The CT of the abdomen and pelvis showed moderate to severe pyelonephritis there is diffuse right urothelial thickening is consistent with pyelitis. Bilateral ureteral stents in good position, stable right hydroureteral nephrosis moderate right and transverse colonic stool in nonobstruction or inflammation. EXTERNAL RECORDS REVIEWED: Previous urology records CHRONIC MEDICAL/SOCIAL CONDITIONS AFFECTING CARE: No social concerns were identified as barriers to patients care. ESCALATION OF CARE CONSIDERED: I considered admission on this patient due to the potential for severe pyelonephritis and recent stent placement with urology. CONSULTATIONS: I had a meaningful discussion about this patient with Dr. De Leon who agrees with my assessment and the treatment plan. I did consult with Dr. Cook urology who will plan to see the patient inpatient. I spoke with Dr. Gallagher who will admit the patient to the hospital. SUMMARY: I evaluated the patient in the emergency department today for complaints of left flank pain. His urinalysis was positive for blood, nitrates, leukocytes, white blood cells. He was given initially 2 mg of morphine without any effectiveness in the pain. He was then given fentanyl 25 mcg with improvement in pain however shortly after it wore off the patient requested another dose and was given another 25 mics of fentanyl with effectiveness. See above dictation for CT results however it did show possible severe pyelonephritis. Urology was contacted and will see the patient inpatient I then contacted Dr. Kim who accepts the patient for admission to the hospital. The patient is to have close outpatient follow-up with a recheck of their symptoms. To return to the ER sooner for any significantly changing or worsening symptoms. The patient was educated on the treatment plan and the discharge instructions. The patient was discharged home in stable condition and verbalized understanding of all discharge instructions and treatment plan. DIAGNOSIS: UTI, pyelonephritis on the left TREATMENT PLAN/DISCHARGE INSTRUCTIONS: Admit to hospitalist services. Past Med/Surg History Problem List (Updated 09/18/24 @ 14:01 by EULALIA Brody) Acute pyelonephritis (Acute) Acute UTI (Acute) Flank Pain (Acute) Pyelonephritis of left kidney Ureteral stent present Lumbar facet joint syndrome Chronic low back pain without sciatica Encounter for pre-operative examination Renal cyst (Chronic) Achondroplastic dwarfism (Acute) Nephrolithiasis (Acute) Medical History Atypical chest pain Hx, Non-cardiac, "related to a pulled muscle" per pt dating back to multiple previous anesthesia consults in [facility] [place] records; subsequent anesthesia/surgery performed at [facility] [place] without noted issue History of COVID-19 Renal cyst Under surveillance Chronic back pain History of fracture left heel - no hx sx intervention Kidney stones History of kidney stones Hypertension Achondroplastic dwarfism Anxiety Surgical History S/P cystoscopy with ureteral stent placement Multiple Hx of chest tube placement Punctured lung at time of kidney stone surgery ~12 years ago [place] teeth removed H/O eye surgery (12/2022) Right Eye Lamellar Keratectomy History of nephrostomy Nephrostomy tube placed/removed History of lithotripsy Multiple Right ureteral dilation, cystoscopy, laser litho, stent (08/25/24): LMA#4 igel at [facility] [place] History of tonsillectomy and adenoidectomy History of mandibular surgery + hardware Denies ROM limitations Family History Brother Nephrolithiasis Mother Myocardial infarction Father Myocardial infarction Hypertension Other No family history of adverse response to anesthesia Denies family history of Ovarian cancer Prostate cancer Diabetes Bladder cancer Dyslipidemia Breast cancer Lung cancer Colorectal cancer Kidney carcinoma Social History Smoking Status: Never smoker Tobacco Type: Smokeless Tobacco (Dip or Chew) Second Hand Exposure: No; Do You Dip or Chew Tobacco: Yes (advised); Hx Alcohol Use: Yes Alcohol type: beer Hx Substance Use: No Preferred Language: Latvian Communication Ability: Effective Visual Impairment: No Limitations Last Trimmer Required: No Beliefs That Will Affect Care: None marital status: Current Living Situation: Family current occupational status: employed How many Children do You have: 1 Feels Safe at Home: Yes Childhood Exposure to Second-Hand Smoke: Yes caffeine: Yes Dental Care, Regularly: Yes Physical Activity Frequency: Does not Exercise Seatbelt Use: always Sunscreen Use: Yes Assistive Devices: None Allergies Allergies Allergy/AdvReac Type Severity Reaction Status Date / Time No Known Allergies Allergy Verified 09/16/24 08:59 Home Meds Home Medications Medication Instructions Recorded Confirmed ketorolac 10 mg tablet 10 mg PO Q8H PRN Pain 09/18/24 09/18/24 Previous Rx's Medication Instructions Recorded walker (Ultra-Light Rollator misc) #1 ea 02/06/22 Knee Scooter #1 ea 02/19/22 Walking Cane #1 ea 03/27/22 amlodipine 5 mg tablet 5 mg PO QAM #90 tabs 06/10/24 escitalopram oxalate 20 mg tablet 20 mg PO QAM 90 days #90 tabs 07/11/24 (Lexapro) ondansetron 8 mg disintegrating 8 mg PO Q8H PRN nausea and 08/12/24 tablet vomiting #30 tabs oxycodone 5 mg tablet 5 mg PO Q6H PRN pain #14 tabs 09/15/24 phenazopyridine 200 mg tablet 200 mg PO Q8H PRN pain #10 tabs 09/15/24 (Pyridium) tamsulosin 0.4 mg capsule 0.4 mg PO HS #30 caps 09/15/24 Results & Data (ED) Vital Signs Vital Signs - 24 hr 09/18/24 09:31 09/18/24 10:13 09/18/24 11:09 Temperature 37.0 C Temperature Source Oral Pulse Rate 94 H 78 Pulse Rate [Apical] 76 Pulse Rhythm Regular Respiratory Rate 20 20 Respiratory Effort / Characteristics Non-Labored Spontaneous Non-Labored Spontaneous Respiratory Depth Normal Normal Respiratory Pattern Regular Regular Blood Pressure 159/94 H Blood Pressure [Right Arm] 161/103 H Blood Pressure Mean 115 Blood Pressure Mean [Right Arm] 122 Blood Pressure Position Sitting Blood Pressure Position [Right Arm] Pulse Oximetry 96 96 Oxygen Delivery Method Room Air Room Air Sepsis Recent Fever Within 48 Hours No Sepsis New/Unexplained Change in Mental Status No Sepsis Action Taken by Nursing No Action Required 09/18/24 13:00 09/18/24 13:52 Temperature Temperature Source Pulse Rate 81 Pulse Rate [Apical] 73 Pulse Rhythm Respiratory Rate 18 20 Respiratory Effort / Characteristics Non-Labored Spontaneous Respiratory Depth Normal Respiratory Pattern Regular Blood Pressure 106/74 Blood Pressure [Right Arm] 99/66 L Blood Pressure Mean Blood Pressure Mean [Right Arm] 77 Blood Pressure Position Blood Pressure Position [Right Arm] Sitting Pulse Oximetry 94 98 Oxygen Delivery Method Room Air Room Air Sepsis Recent Fever Within 48 Hours Sepsis New/Unexplained Change in Mental Status Sepsis Action Taken by Nursing Laboratory Data 09/18/24 09:53 09/18/24 09:53 Lab Results 09/18/24 Range/Units 09:53 WBC 6.57 (4.8-10.8) K/ul RBC 4.66 L (4.70-6.10) M/uL Hgb 14.9 (14.0-18.0) g/dl Hct 44.4 (42.0-52.0) % MCV 95.3 (80.0-100.0) fL MCH 32.0 (25.0-34.0) pg MCHC 33.6 (32.0-36.0) g/dL RDW Std Deviation 44.3 (36.4-46.3) fL RDW Coeff of Boy 12.8 (11.5-14.5) % Plt Count 310 (130-400) K/uL MPV 8.5 L (9.4-12.4) fL Immature Gran % (Auto) 0.3 % Neut % (Auto) 73.6 % Lymph % (Auto) 14.6 % [place] % (Auto) 9.3 % Eos % (Auto) 1.4 % Baso % (Auto) 0.8 % Neut # (Auto) 4.84 (1.40-6.50) K/uL Lymph # (Auto) 0.96 L (1.20-3.40) K/uL [place] # (Auto) 0.61 H (0.11-0.59) K/uL Eos # (Auto) 0.09 (0.00-0.50) K/uL Baso # (Auto) 0.05 (0.00-0.20) K/uL Immature Gran # (Auto) 0.02 (0.01-0.20) K/uL Sodium 139 (136-145) mmol/L Potassium 4.2 (3.5-5.1) mmol/L Chloride 104 (98-107) mmol/L Carbon Dioxide 30 (21-32) mmol/L Anion Gap 5 (3-11) BUN 16 (6-23) mg/dl Creatinine 1.00 (0.6-1.4) mg/dl Est Cr Clr Drug Dosing 77.1 ml/min eGFR 100.03 BUN/Creatinine Ratio 16.0 (10-20) Glucose 129 H (70-99(Fasting)) mg/dl Calcium 9.9 (8.6-10.3) mg/dl Total Bilirubin 0.5 (0.2-1.0) mg/dl AST 16 (13-39) U/L ALT 13 (7-52) U/L Alkaline Phosphatase 63 (34-104) U/L Total Protein 7.3 (6.0-8.3) gm/dl Albumin 4.0 (3.4-5.0) gm/dl Globulin 3.3 (2.5-4.0) gm/dl Albumin/Globulin Ratio 1.2 (0.9-2) Urine Color Yellow Urine Appearance Cloudy A (Clear) Urine pH 6.0 (4.5-7.5) Ur Specific [place] 1.013 (1.000-1.030) Urine Protein 2+ H (Negative) Urine Glucose (UA) Negative (Negative) Urine Ketones 1+ H (Negative) Urine Blood 3+ H (Negative) Urine Nitrite Positive A (Negative) Urine Bilirubin Negative (Negative) Urine Urobilinogen Negative (Negative) Ur Leukocyte Esterase 2+ H (Negative) Urine WBC (Auto) >50 H (0-5) /hpf Urine RBC (Auto) >20 H (0-2) /hpf U Hyaline Cast (Auto) 0-2 (0-2) /lpf U Epithel Cells (Auto) 0-2 (0-2) /hpf Urine Bacteria (Auto) None Seen (None Seen) Urine Comment Administered Medications Discontinued Medications Fentanyl Citrate (Fentanyl Citrate Pf 100 Mcg/2 Ml Vial) 25 mcg IV NOW ONE Stop: 09/18/24 10:37 Last Admin: 09/18/24 10:48 Dose: 25 mcg Documented By: TIMO Fentanyl Citrate (Fentanyl Citrate Pf 100 Mcg/2 Ml Vial) 25 mcg IV NOW ONE Stop: 09/18/24 12:04 Last Admin: 09/18/24 12:35 Dose: 25 mcg Documented By: NOLAN Ceftriaxone Sodium (Rocephin) 2,000 mg in 50 mls @ 100 mls/hr IV NOW STA Stop: 09/18/24 12:28 Last Infusion: 09/18/24 13:13 Dose: Infused Documented By: Admin: 09/18/24 12:38 Dose: 100 mls/hr Documented By: NOLAN Ioversol (Optiray 320 100ml) 94 ml IV ONCE ONE Stop: 09/18/24 10:59 Last Admin: 09/18/24 10:59 Dose: 94 ml Documented By: KLARISSA Morphine Sulfate (Morphine Sulfate 2 Mg/Ml [place]) 2 mg IV NOW STA Stop: 09/18/24 09:45 Last Admin: 09/18/24 10:06 Dose: 2 mg Documented By: TIMO Ondansetron HCl (Ondansetron Inj 2 Mg/Ml 2 Ml Vial) 4 mg IV NOW STA Stop: 09/18/24 09:45 Last Admin: 09/18/24 10:06 Dose: 4 mg Documented By: TIMO Imaging Data Radiologist's Impression: Abdomen/Pelvis CT 09/18/24 09:44 EXAM: CT Abdomen and Pelvis With Intravenous Contrast INDICATION: Unbearable pain following recent ureteral stent placement. TECHNIQUE: Axial computed tomography images of the abdomen and pelvis with intravenous contrast. Sagittal and coronal reformatted images were created and reviewed. This CT exam was performed using one or more of the following dose reduction techniques: automated exposure control, adjustment of the mA and/or kV according to patient size, and/or use of iterative reconstruction technique. CONTRAST: 94ml of Optiray 320 was administered intravenously. COMPARISON: 07/31/2024 FINDINGS: Limitations: None. Lung bases: No abnormality noted. Pleural space: No visualized pleural effusion or pneumothorax. Heart: No abnormality noted. Mediastinum: No abnormality noted. ABDOMEN: Liver: No abnormality noted. Gallbladder and bile ducts: No calcified stones or surrounding fluid. No ductal dilation. Pancreas: Homogeneous enhancement. No mass, inflammation or ductal dilation. Spleen: No significant abnormality noted. Adrenals: No significant abnormality noted. Kidneys and ureters: Bilateral ureteral stents in good position. There is no change moderate right hydroureteronephrosis. There is increased diffuse right urothelial thickening. There are now significant areas of diminished attenuation in much of the left kidney sparing the upper lobe. Small amounts of gas in the right collecting system. Small stone fragments noted in the left kidney. No stone fragments seen along either ureter. No perinephric fluid. Stomach and bowel: Moderate amounts of right and transverse colonic stool. No obstruction. No inflammatory process. PELVIS: Appendix: No findings to suggest acute appendicitis. Bladder: Urinary bladder appears mildly thickened although incompletely distended. No gas or stone. Reproductive: No abnormalities noted. ABDOMEN and PELVIS: Intraperitoneal space: No free air. No significant fluid collection. Bones/joints: No acute changes. Soft tissues: No significant abnormality noted. Vasculature: No abdominal aortic aneurysm. Lymph nodes: No pathologically enlarged lymph nodes. IMPRESSION: 1. There is now considerable heterogeneous decreased enhancement of the left kidney most typical of moderate to severe pyelonephritis. There is now diffuse right urothelial thickening also consistent with pyelitis. 2. Bilateral ureteral stents in good position. 3. Stable right hydroureteronephrosis. 4. Stone fragments left kidney. No fragments seen along either ureter or in the bladder. 5. Moderate right and transverse colonic stool. No obstruction or inflammation. ACT 112: N/A Electronically signed by Roseline Fregoso 09-18-2024 11:36 AM Discharge Plan Visit Data Chief Complaint: Flank Pain Stated Complaint: POST KIDNEY STONE SURGERY PAIN ED Provider: Marcus De Leon ED Midlevel Provider: Maura Zarate Discharge Problem: Flank Pain, Acute UTI, Acute pyelonephritis Patient Disposition: Admitted As Inpatient Condition: Good Discharge Instructions Interventions: ED Discharge Assessment Last Done: 09/18/24 13:52 Forms Stand Alone Forms: My [facility] Prescriptions Prescriptions: No Action (DME) Knee Scooter Misc See Rx Instructions .ROUTE .MEDSUPPLY Qty: 1 0RF Rx Instructions: As directed escitalopram oxalate [Lexapro] 20 mg tablet 20 mg PO QAM 90 Days Qty: 90 3RF Hold Instructions: Home Medication placed on hold at Doctor's office (DME) Walking Cane [facility] See Rx Instructions .ROUTE .MEDSUPPLY Qty: 1 0RF Rx Instructions: As directed (DME) Ultra-Light Rollator [facility] See Rx Instructions .Route Qty: 1 0RF Rx Instructions: As directed amlodipine 5 mg tablet 5 mg PO QAM Qty: 90 3RF ondansetron 8 mg tablet,disintegrating 8 mg PO Q8H PRN (Reason: nausea and vomiting) Qty: 30 0RF phenazopyridine [Pyridium] 200 mg tablet 200 mg PO Q8H PRN (Reason: pain) Qty: 10 0RF tamsulosin 0.4 mg capsule 0.4 mg PO HS Qty: 30 0RF oxycodone 5 mg tablet 5 mg PO Q6H PRN (Reason: pain) Qty: 14 0RF Rx Instructions: per pt, he's out of medication. ketorolac 10 mg tablet 10 mg PO Q8H PRN (Reason: Pain) Referrals Referrals: Maikol Patel DO [Primary Care Provider] -
[2024-09-18 10:06] LABS: Basophils # (auto) 0.05 K/uL (0.00-0.20); Basophils % (auto) 0.8 %; Eosinophils # (auto) 0.09 K/uL (0.00-0.50); Eosinophils % (auto) 1.4 %; Hematocrit (blood only) 44.4 % (42.0-52.0); Hemoglobin 14.9 g/dl (14.0-18.0); Immature Granulocytes # (auto) 0.02 K/uL (0.01-0.20); Immature Granulocytes % (auto) 0.3 %; Lymphocytes # (auto) 0.96 K/uL (1.20-3.40); Lymphocytes % (auto) 14.6 %; Mean Corpuscular Hgb Conc 33.6 g/dL (32.0-36.0); Mean Corpuscular Volume 95.3 fL (80.0-100.0); Mean Platelet Volume 8.5 fL (9.4-12.4); Monocytes # (auto) 0.61 K/uL (0.11-0.59); Monocytes % (auto) 9.3 %; Neutrophils # (auto) 4.84 K/uL (1.40-6.50); Neutrophils % (auto) 73.6 %; Platelet Count 310 K/uL (130-400); RDW Coefficient of Variation 12.8 % (11.5-14.5); RDW Standard Deviation 44.3 fL (36.4-46.3); Red Blood Count 4.66 M/uL (4.70-6.10); White Blood Count 6.57 K/ul (4.8-10.8)
[2024-09-18] MEDS: MoRPHine SULFATE 2 MG/ML CARP IV STA (10:06)
[2024-09-18] MEDS: ONDANSETRON INJ 2 MG/ML 2 ML VIAL IV STA (10:06)
[2024-09-18 10:21] LABS: Albumin Globulin Ratio 1.2 (0.9-2); Bilirubin,Total 0.5 mg/dl (0.2-1.0); Calcium 9.9 mg/dl (8.6-10.3); Creatinine Clr Calc Pharmacy 77.1 ml/min; Globulin 3.3 gm/dl (2.5-4.0); Potassium 4.2 mmol/L (3.5-5.1); Total Protein 7.3 gm/dl (6.0-8.3)
[2024-09-18 10:23] LABS: Appearance Urine Cloudy (Clear); Bacteria Urine Automated None Seen (None Seen); Bilirubin Urine Negative (Negative); Blood Urine 3+ (Negative); Cast Urine Automated 0-2 /lpf (0-2); Color Urine Yellow; Epithelial Cell Urine Auto 0-2 /hpf (0-2); Glucose Urine UA Negative (Negative); Ketones Urine 1+ (Negative); Leukocyte Esterase Urine 2+ (Negative); Nitrite Urine Positive (Negative); Protein Urine 2+ (Negative); RBC Urine Automated >20 /hpf (0-2); Specific Gravity Urine 1.013 (1.000-1.030); Urobilinogen Urine Negative (Negative); WBC Urine Automated >50 /hpf (0-5)
[2024-09-18] MEDS: fentaNYL citrate PF 100 MCG/2 ML VIAL IV ONE ×2 (10:48→12:35)
[2024-09-18] MEDS: OPTIRAY 320 100ml IV ONE (10:59)
--- NOTE | 2024-09-18 11:37 | CT Scan Report ---
EXAM: CT Abdomen and Pelvis With Intravenous Contrast INDICATION: Unbearable pain following recent ureteral stent placement. TECHNIQUE: Axial computed tomography images of the abdomen and pelvis with intravenous contrast. Sagittal and coronal reformatted images were created and reviewed. This CT exam was performed using one or more of the following dose reduction techniques: automated exposure control, adjustment of the mA and/or kV according to patient size, and/or use of iterative reconstruction technique. CONTRAST: 94ml of Optiray 320 was administered intravenously. COMPARISON: 07/31/2024 FINDINGS: Limitations: None. Lung bases: No abnormality noted. Pleural space: No visualized pleural effusion or pneumothorax. Heart: No abnormality noted. Mediastinum: No abnormality noted. ABDOMEN: Liver: No abnormality noted. Gallbladder and bile ducts: No calcified stones or surrounding fluid. No ductal dilation. Pancreas: Homogeneous enhancement. No mass, inflammation or ductal dilation. Spleen: No significant abnormality noted. Adrenals: No significant abnormality noted. Kidneys and ureters: Bilateral ureteral stents in good position. There is no change moderate right hydroureteronephrosis. There is increased diffuse right urothelial thickening. There are now significant areas of diminished attenuation in much of the left kidney sparing the upper lobe. Small amounts of gas in the right collecting system. Small stone fragments noted in the left kidney. No stone fragments seen along either ureter. No perinephric fluid. Stomach and bowel: Moderate amounts of right and transverse colonic stool. No obstruction. No inflammatory process. PELVIS: Appendix: No findings to suggest acute appendicitis. Bladder: Urinary bladder appears mildly thickened although incompletely distended. No gas or stone. Reproductive: No abnormalities noted. ABDOMEN and PELVIS: Intraperitoneal space: No free air. No significant fluid collection. Bones/joints: No acute changes. Soft tissues: No significant abnormality noted. Vasculature: No abdominal aortic aneurysm. Lymph nodes: No pathologically enlarged lymph nodes. IMPRESSION: 1. There is now considerable heterogeneous decreased enhancement of the left kidney most typical of moderate to severe pyelonephritis. There is now diffuse right urothelial thickening also consistent with pyelitis. 2. Bilateral ureteral stents in good position. 3. Stable right hydroureteronephrosis. 4. Stone fragments left kidney. No fragments seen along either ureter or in the bladder. 5. Moderate right and transverse colonic stool. No obstruction or inflammation. ACT 112: N/A Electronically signed by Roseline Fregoso 09-18-2024 11:36 AM
--- NOTE | 2024-09-18 12:23 | History & Physical Report ---
Date of Service September 18, 2024 Assessment & Plan (1) Ureteral stent present: Plan: #Recent history of stent placement #Pyelonephritis with stents in place #Refractory flank pain Multiple prior stones requiring stent placement. Currently has bilateral ureteral stents in place, appropriately positioned per CT. Pain poorly controlled and UA infectious appearing. UCx and BCx pending. Urology consult - appreciate recs. Start empiric abx with CTX - if clinically worsening/signs of sepsis would broaden to cover resistant gram negative organisms. urology consult - appreciate recs aggressive IVF, continue tamsulosin abx start 09/18 CTX BCx and UCx pending would start diet if intervention not indicated Pain regimen: Tylenol 1000 mg Q8H scheduled Toradol 15 mg IV Q6H PRN Dilaudid 0.5 mg, 1 mg, 2 mg PRN with pain scale Continue Pyridium Naloxone PRN for respiratory depression #Constipation Significant stool burden noted on imaging. Has been on opioids, which is likely contributing. Schedule MiraLAX 17 gm BID. #HTN Patient on amlodipine outpatient. With large narcotic medication need and risk of hypotension will hold amlodipine for now. #Mood Disorder Continue SSRI while inpatient Code status: full DVT ppx: SCDs, ambulation, hold on chemoppx for possible intervention FENGI: NPO for now, s/p 1 L NSS, LR @ 125 mL/hr x 3L Dispo: PCU/tele (2) Pyelonephritis of left kidney: (3) Nephrolithiasis: History of Present Illness Chief Complaint: flank pain Primary Care Provider: Maikol Patel, 34 y/o with a complicated urologic history presents with refractory flank pain. Patient does follow with urology. Has had multiple stents placed in the past. Most recent right - 3 weeks ago, left 09/15. Has had significant pain since this stent was placed. Was told to increase his oxycodone to 10 mg and is now out. He took his ibuprofen, toradol, and tylenol this morning without significant improvement. Pain was not controlled, so he was concerned that there may be something wrong with the stent. This prompted eval in the ED. Does have dysuria and hematuria. No fevers or chills. Minimal nausea. Most concerning feature is the pain. In the ED: CT with signs of left pyelo. Given morphine 2 mg, fentanyl 25 mcg x 2. ED provider discussed with on-call urologist - start abx and urology will see him. Hospitalist team consulted for admission for pain control and management of pyelonephritis. Allergies Allergy/AdvReac Type Severity Reaction Status Date / Time No Known Allergies Allergy Verified 09/16/24 08:59 Home Medications Medication Instructions Recorded Confirmed Type walker (Ultra-Light Rollator misc) #1 ea 02/06/22 02/19/24 Rx Knee Scooter #1 ea 02/19/22 02/19/24 Rx Walking Cane #1 ea 03/27/22 02/19/24 Rx amlodipine 5 mg tablet 5 mg PO QAM #90 tabs 06/10/24 09/18/24 Rx escitalopram oxalate 20 mg tablet 20 mg PO QAM 90 days #90 tabs 07/11/24 09/18/24 Rx (Lexapro) ondansetron 8 mg disintegrating 8 mg PO Q8H PRN nausea and 08/12/24 09/18/24 Rx tablet vomiting #30 tabs oxycodone 5 mg tablet 5 mg PO Q6H PRN pain #14 tabs 09/15/24 09/18/24 Rx phenazopyridine 200 mg tablet 200 mg PO Q8H PRN pain #10 tabs 09/15/24 09/18/24 Rx (Pyridium) tamsulosin 0.4 mg capsule 0.4 mg PO HS #30 caps 09/15/24 09/18/24 Rx ketorolac 10 mg tablet 10 mg PO Q8H PRN Pain 09/18/24 09/18/24 History Past Med/Surg History Problem List (Updated 09/18/24 @ 12:41 by Queta Gallagher MD) Pyelonephritis of left kidney Ureteral stent present Lumbar facet joint syndrome Chronic low back pain without sciatica Encounter for pre-operative examination Renal cyst (Chronic) Achondroplastic dwarfism (Acute) Nephrolithiasis (Acute) Medical History Atypical chest pain Hx, Non-cardiac, "related to a pulled muscle" per pt dating back to multiple previous anesthesia consults in [facility] records; subsequent anesthesia/surgery performed at [facility] without noted issue History of COVID-19 Renal cyst Under surveillance Chronic back pain History of fracture left heel - no hx sx intervention Kidney stones History of kidney stones Hypertension Achondroplastic dwarfism Anxiety Surgical History S/P cystoscopy with ureteral stent placement Multiple Hx of chest tube placement Punctured lung at time of kidney stone surgery ~12 years ago [place] teeth removed H/O eye surgery (12/2022) Right Eye Lamellar Keratectomy History of nephrostomy Nephrostomy tube placed/removed History of lithotripsy Multiple Right ureteral dilation, cystoscopy, laser litho, stent (08/25/24): LMA#4 igel at [facility] History of tonsillectomy and adenoidectomy History of mandibular surgery + hardware Denies ROM limitations Family History Brother Nephrolithiasis Mother Myocardial infarction Father Myocardial infarction Hypertension Other No family history of adverse response to anesthesia Denies family history of Ovarian cancer Prostate cancer Diabetes Bladder cancer Dyslipidemia Breast cancer Lung cancer Colorectal cancer Kidney carcinoma Social History Smoking Status: Never smoker Tobacco Type: Smokeless Tobacco (Dip or Chew) Second Hand Exposure: No; Do You Dip or Chew Tobacco: Yes (advised); Hx Alcohol Use: Yes Alcohol type: beer Hx Substance Use: No Preferred Language: Maltese Communication Ability: Effective Visual Impairment: No Limitations Addiction Treatment Counselor Required: No Beliefs That Will Affect Care: None marital status: Current Living Situation: Family current occupational status: employed How many Children do You have: 1 Feels Safe at Home: Yes Childhood Exposure to Second-Hand Smoke: Yes caffeine: Yes Dental Care, Regularly: Yes Physical Activity Frequency: Does not Exercise Seatbelt Use: always Sunscreen Use: Yes Assistive Devices: None Review of Systems 2 Review of Systems: See HPI Physical Exam 2 Physical Exam: Gen: tired and uncomfortable appearing patient in NAD HEENT: AT NC MMM Resp: CTAB no wheezing no increased work of breathing CV: RRR no m/r/g clinically well perfused Abd: +BS, soft, no peritoneal signs, non-distended, deferred CVA tenderness testing due to known stents and significant pain MSK: no obvious deformities Skin: no rashes or bruising Neuro: alert and oriented Psych: appropriate mood and affect Results & Data Results & Data Vital Signs (Past 12 Hours) Vital Signs Temp Pulse Pulse Resp BP BP Pulse Ox 09/18/24 11:09 76 20 161/103 H 96 09/18/24 10:13 78 09/18/24 09:31 37.0 C 94 H 20 159/94 H 96 O2 Del Method 09/18/24 11:09 Room Air 09/18/24 10:13 09/18/24 09:31 Room Air Laboratory Results 09/18/24 09:53 09/18/24 09:53 Diagnostic Findings Abdomen/Pelvis CT 09/18/24 09:44 FINDINGS: Limitations: None. Lung bases: No abnormality noted. Pleural space: No visualized pleural effusion or pneumothorax. Heart: No abnormality noted. Mediastinum: No abnormality noted. ABDOMEN: Liver: No abnormality noted. Gallbladder and bile ducts: No calcified stones or surrounding fluid. No ductal dilation. Pancreas: Homogeneous enhancement. No mass, inflammation or ductal dilation. Spleen: No significant abnormality noted. Adrenals: No significant abnormality noted. Kidneys and ureters: Bilateral ureteral stents in good position. There is no change moderate right hydroureteronephrosis. There is increased diffuse right urothelial thickening. There are now significant areas of diminished attenuation in much of the left kidney sparing the upper lobe. Small amounts of gas in the right collecting system. Small stone fragments noted in the left kidney. No stone fragments seen along either ureter. No perinephric fluid. Stomach and bowel: Moderate amounts of right and transverse colonic stool. No obstruction. No inflammatory process. PELVIS: Appendix: No findings to suggest acute appendicitis. Bladder: Urinary bladder appears mildly thickened although incompletely distended. No gas or stone. Reproductive: No abnormalities noted. ABDOMEN and PELVIS: Intraperitoneal space: No free air. No significant fluid collection. Bones/joints: No acute changes. Soft tissues: No significant abnormality noted. Vasculature: No abdominal aortic aneurysm. Lymph nodes: No pathologically enlarged lymph nodes. IMPRESSION: 1. There is now considerable heterogeneous decreased enhancement of the left kidney most typical of moderate to severe pyelonephritis. There is now diffuse right urothelial thickening also consistent with pyelitis. 2. Bilateral ureteral stents in good position. 3. Stable right hydroureteronephrosis. 4. Stone fragments left kidney. No fragments seen along either ureter or in the bladder. 5. Moderate right and transverse colonic stool. No obstruction or inflammation. Code Status & VTE Plan VTE Prophylaxis Plan VTE Prophylaxis will be ordered: Yes Supervising Physician Co-Signing Physician Notes I personally examined the patient and verified all jenkins points of history and exam, discussed case, and agree with decision making with Dr Gallagher flank pain - has stents. vitals noted appearing uncomfortable but still pleasant. heent nc at mmm breathing unlabored no accessory muscles good effort skin without rashes pallor or icterus. CT (images and report) reviewed and labs reviewed pyelonephritis, ureterolithiasis/stenting - admit, IV fluids, pain control, IV abx (ceftriaxone and follow cx (blood/urine)- given no severe sepsis/septic shock no empiric need for ESBL/antipseudomonal coverage but obviously will expand if cultures indicate), urology to see - anticipate cysto. otherwise as above Resident Activity Tracking Resident Involvement: Resident Care Provided Care Provided: Adult Hospital Medicine
--- NOTE | 2024-09-18 12:35 | Billing Data ---
Date of Service September 18, 2024 Coding Level of Care Code 03577 INT INP/OBS CARE
[2024-09-18] MEDS: cefTRIAXone SODIUM 2,000 MG/50 ML BAG IV STA (12:38)
[2024-09-18] MEDS ORDERED: MELATONIN 3 MG TAB PO PRN (14:08)
[2024-09-18] MEDS ORDERED: HYDROmorphone INJ 2 MG/ML SYR/VIAL IV PRN (14:08)
[2024-09-18] MEDS ORDERED: ALUMINUM/MAGNESIUM SUSP 30 ML UDC PO PRN (14:08)
[2024-09-18] MEDS ORDERED: MAGNESIUM HYDROXIDE SUSP 30 ML UDC PO PRN (14:08)
[2024-09-18] MEDS ORDERED: PHENAZOPYRIDINE HCL 200 MG TAB PO PRN (14:08)
[2024-09-18] MEDS ORDERED: NALOXONE HCL 0.4 MG/1 ML VIAL/CARP IV PRN (14:08)
[2024-09-18] MEDS ORDERED: HYDROmorphone INJ 0.5 MG/0.5 ML SYR IV PRN (14:08)
[2024-09-18] MEDS ORDERED: ONDANSETRON INJ 2 MG/ML 2 ML VIAL IV PRN (14:08)
[2024-09-18] MEDS: SODIUM CHLORIDE 0.9% 1,000 ML IV ONE (14:13)
[2024-09-18] MEDS: ACETAMINOPHEN 500 MG TAB PO SCH (14:21)
[2024-09-18] MEDS: HYDROmorphone INJ 1 MG/ML SYRINGE IV PRN (14:22)
[2024-09-18] MEDS: LACTATED RINGER'S 1,000 ML IV SCH (14:31)
--- NOTE | 2024-09-18 14:35 | Urology Consultation ---
Date of Consultation September 18, 2024 Assessment & Plan (1) Ureteral stent present: (2) Acute pyelonephritis: (3) Flank Pain: Plan 34-year-old male s/p bilateral ureteroscopy with persistent left-sided flank pain. I suspect flank pain is related mostly to recent surgery and would recommend pain control with Tylenol, ibuprofen or ketorolac, tamsulosin, Pyridium, narcotics if needed. Clinically he does not appear to have significant urinary tract infection, although with gas in the kidney and hypoenhancement, and recent instrumentation, I think it is reasonable to treat with empiric antibiotics and follow urine/blood cultures. Both stents are in good position. For now we will leave these in place. No plan for surgical intervention at this time. Would continue antibiotics and follow-up cultures. Urology will follow along. History of Present Illness Attending Physician: Farshad Jones, History of Present Illness This is a 34-year-old male with history of nephrolithiasis. He recently underwent staged ureteroscopy for bilateral kidney stones. Most recent intervention was on 09/15/2024, at which point left-sided stones were treated and bilateral stents were left in place. He was discharged home on 09/15, but reports ongoing pain, particularly in the left flank. He denies any fevers or chills. Due to ongoing pain he presented to the emergency department on 09/18. Workup in the emergency department on 09/18/2024 demonstrated normal WBC (6.57) hemoglobin was 14.9. Creatinine was 1.00. Urinalysis demonstrated 3+ blood, positive nitrites, 2+ leukocyte esterase, negative bacteria. Blood and urine cultures are pending and he received ceftriaxone. A CT scan of the abdomen and pelvis was performed. I independently reviewed these images from 09/18/2024. Both kidneys are in normal position. There is significant hydronephrosis of the right side with some thickening of the ureteral lining. Right ureteral stent appears to be in good position. There is minimal left-sided hydronephrosis, although there is patchy hypoenhancement of the left kidney. Left ureteral stent appears to be in good position. There is a small amount of gas in the collecting systems bilaterally. Bladder appears grossly normal and prostate is fairly small. Radiology raised concern for possible pyelonephritis of the left kidney. He was admitted for treatment of pyelonephritis and urology was consulted given his recent surgery. At the bedside he is still having some discomfort. He feels like he is emptying well. He denies any fevers or chills. Allergies Allergy/AdvReac Type Severity Reaction Status Date / Time No Known Allergies Allergy Verified 09/16/24 08:59 Home Medications Medication Instructions Recorded Confirmed Type walker (Ultra-Light Rollator misc) #1 ea 02/06/22 02/19/24 Rx Knee Scooter #1 ea 02/19/22 02/19/24 Rx Walking Cane #1 ea 03/27/22 02/19/24 Rx amlodipine 5 mg tablet 5 mg PO QAM #90 tabs 06/10/24 09/18/24 Rx escitalopram oxalate 20 mg tablet 20 mg PO QAM 90 days #90 tabs 07/11/24 09/18/24 Rx (Lexapro) ondansetron 8 mg disintegrating 8 mg PO Q8H PRN nausea and 08/12/24 09/18/24 Rx tablet vomiting #30 tabs oxycodone 5 mg tablet 5 mg PO Q6H PRN pain #14 tabs 09/15/24 09/18/24 Rx phenazopyridine 200 mg tablet 200 mg PO Q8H PRN pain #10 tabs 09/15/24 09/18/24 Rx (Pyridium) tamsulosin 0.4 mg capsule 0.4 mg PO HS #30 caps 09/15/24 09/18/24 Rx ketorolac 10 mg tablet 10 mg PO Q8H PRN Pain 09/18/24 09/18/24 History Patient History Medical History Atypical chest pain Hx, Non-cardiac, "related to a pulled muscle" per pt dating back to multiple previous anesthesia consults in [facility] records; subsequent anesthesia/surgery performed at [facility] without noted issue History of COVID-19 Renal cyst Under surveillance Chronic back pain History of fracture left heel - no hx sx intervention Kidney stones History of kidney stones Hypertension Achondroplastic dwarfism Anxiety Surgical History S/P cystoscopy with ureteral stent placement Multiple Hx of chest tube placement Punctured lung at time of kidney stone surgery ~12 years ago [place] teeth removed H/O eye surgery (12/2022) Right Eye Lamellar Keratectomy History of nephrostomy Nephrostomy tube placed/removed History of lithotripsy Multiple Right ureteral dilation, cystoscopy, laser litho, stent (08/25/24): LMA#4 igel at [facility] History of tonsillectomy and adenoidectomy History of mandibular surgery + hardware Denies ROM limitations Family History Brother Nephrolithiasis Mother Myocardial infarction Father Myocardial infarction Hypertension Other No family history of adverse response to anesthesia Denies family history of Ovarian cancer Prostate cancer Diabetes Bladder cancer Dyslipidemia Breast cancer Lung cancer Colorectal cancer Kidney carcinoma Social History Smoking Status: Never smoker Tobacco Type: Smokeless Tobacco (Dip or Chew) Second Hand Exposure: No; Do You Dip or Chew Tobacco: Yes (advised); Hx Alcohol Use: Yes Alcohol type: beer Hx Substance Use: No Preferred Language: Burkinan Communication Ability: Effective Visual Impairment: No Limitations Sales Floor Team Leader Required: No Beliefs That Will Affect Care: None marital status: Current Living Situation: Family current occupational status: employed How many Children do You have: 1 Feels Safe at Home: Yes Childhood Exposure to Second-Hand Smoke: Yes caffeine: Yes Dental Care, Regularly: Yes Physical Activity Frequency: Does not Exercise Seatbelt Use: always Sunscreen Use: Yes Assistive Devices: None Review of Systems Review of Systems: 10 point review of systems negative exce pt for otherwise indicated. Physical Exam Constitutional: well developed and well nourished; no acute distress Eyes: + anicteric sclerae; pupils not irregula r Respiratory: normal respiratory effort; no respiratory distress, does not use accessory muscles and no cough Cardiovascular: well perfused Gastrointestinal (Abdomen): Inspection/Auscultation: abdomen normal to inspection; abdomen not distended Musculoskeletal: Extremities: extremities normal to inspection Skin: normal turgor; no rashes and no lesions Neurologic: moves all extremities and awake Psychiatric: Orientation: alert and oriented x 3 Results & Data Vital Signs (Past 12 Hours) Vital Signs Temp Pulse Pulse Resp BP BP Pulse Ox 09/18/24 13:52 81 20 106/74 98 09/18/24 13:00 73 18 99/66 L 94 09/18/24 11:09 76 20 161/103 H 96 09/18/24 10:13 78 09/18/24 09:31 37.0 C 94 H 20 159/94 H 96 O2 Del Method 09/18/24 13:52 Room Air 09/18/24 13:00 Room Air 09/18/24 11:09 Room Air 09/18/24 10:13 09/18/24 09:31 Room Air PG Care Time/CCT Total # of Minutes Spent Total Time Spent with Patient: Total time spent is greater than 50% in coordination of care (as documented) at patient's floor/unit and/or counseling patient: Coding Level of Care Code 10868 IN/OBS CONSULT LVL 4,60M Diagnoses Ureteral stent present Z96.0 Acute pyelonephritis N10 Flank Pain R10.9
[2024-09-18] MEDS: KETOROLAC TROMETHAMINE 15 MG/ML VIAL IV PRN (17:26)
[2024-09-18] MEDS: TAMSULOSIN HCL 0.4 MG CAP PO SCH (19:50)
[2024-09-18] MEDS: POLYETHYLENE (MIRALAX) 17 GM PACK PO SCH (21:13)
[2024-09-19 06:57] LABS: Hematocrit (blood only) 37.5 % (42.0-52.0); Hemoglobin 12.7 g/dl (14.0-18.0); Mean Corpuscular Hemoglobin 32.2 pg (25.0-34.0); Mean Corpuscular Hgb Conc 33.9 g/dL (32.0-36.0); Mean Corpuscular Volume 95.2 fL (80.0-100.0); Mean Platelet Volume 8.6 fL (9.4-12.4); Platelet Count 265 K/uL (130-400); RDW Coefficient of Variation 12.6 % (11.5-14.5); RDW Standard Deviation 44.1 fL (36.4-46.3); Red Blood Count 3.94 M/uL (4.70-6.10); White Blood Count 5.93 K/ul (4.8-10.8)
[2024-09-19 07:16] LABS: BUN Creatinine Ratio 16.7 (10-20); Calcium 8.9 mg/dl (8.6-10.3); Creatinine Clr Calc Pharmacy 91.8 ml/min; Potassium 4.1 mmol/L (3.5-5.1)
--- NOTE | 2024-09-19 07:30 | Hospitalist Progress Note ---
Date of Service September 19, 2024 Assessment & Plan (1) Ureteral stent present: (2) Pyelonephritis of left kidney: (3) Nephrolithiasis: Plan #Recent history of stent placement #Pyelonephritis with stents in place #Refractory flank pain Multiple prior stones requiring stent placement. Currently has bilateral ureteral stents in place, appropriately positioned per CT. Pain poorly controlled and UA infectious appearing. UCx and BCx pending. Urology consult - appreciate recs. Start empiric abx with CTX - if clinically worsening/signs of sepsis would broaden to cover resistant gram negative organisms. urology consult - appreciate recs aggressive IVF, continue tamsulosin abx start 09/18 CTX BCx and UCx pending would start diet if intervention not indicated Pain regimen: Tylenol 1000 mg Q8H scheduled Toradol 15 mg IV Q6H PRN Dilaudid 0.5 mg, 1 mg, 2 mg PRN with pain scale Continue Pyridium Naloxone PRN for respiratory depression #Constipation Significant stool burden noted on imaging. Has been on opioids, which is likely contributing. Schedule MiraLAX 17 gm BID. #HTN Patient on amlodipine outpatient. With large narcotic medication need and risk of hypotension will hold amlodipine for now. #Mood Disorder Continue SSRI while inpatient Code status: full DVT ppx: SCDs, ambulation, hold on chemoppx for possible intervention FENGI: NPO for now, s/p 1 L NSS, LR @ 125 mL/hr x 3L Dispo: PCU/tele Admission and Anticipated Discharge Date Admission Date: September 18, 2024 Supervising Physician Co-Signing Physician Notes Attending attestation Pt seen and examined in concert with []. In agreement with the documented findings as noted in the resident documentation with any exceptions or additions as noted here. Review of Systems Review of Systems: See HPI Results & Data Results & Data Vital Signs (Past 12 Hours) Vital Signs Temp Pulse Pulse Resp BP Pulse Ox O2 Del Method 09/19/24 07:01 76 09/19/24 03:13 147/95 H 09/19/24 02:32 36.6 C 72 22 175/79 H 92 Room Air 09/18/24 23:14 36.9 C 73 18 146/97 H 95 Room Air 09/18/24 19:48 36.8 C 77 16 154/94 H 91 Room Air
[2024-09-19 07:37] VITALS: O2SAT 91
[2024-09-19] MEDS: ESCITALOPRAM OXALATE 20 MG TAB PO SCH (08:08)
--- NOTE | 2024-09-19 09:40 | Urology Progress Note ---
Date of Service September 19, 2024 Assessment & Plan (1) Flank Pain: (2) Ureteral stent present: Plan 34-year-old male readmitted after ureteroscopy with flank pain. I suspect this is largely postprocedural and pain seems to be better controlled on his current regimen. He is not having any fevers, cultures are so far negative and he does not have a significant leukocytosis: I have fairly low suspicion for infection at this point. If he continues to feel well without any fevers, I think it would be reasonable to try to get him on an oral pain control regimen, possible short course of oral antibiotics and subsequent discharge home with plan for stent removal as scheduled later this week. Admission and Anticipated Discharge Date Admission Date: September 18, 2024 Subjective Feeling okay this morning Denies any fevers or chills Pain has improved Tolerating a diet Urine culture preliminary no growth, blood cultures pending, Remains on ceftriaxone. WBC 5.93, creatinine 0.84 Physical Exam Physical Exam: Ambulating in the room, NAD Results & Data Vital Signs (Past 12 Hours) Vital Signs Temp Pulse Pulse Resp BP Pulse Ox O2 Del Method 09/19/24 08:00 Room Air 09/19/24 07:36 37.1 C 88 20 160/99 H 91 Room Air 09/19/24 07:01 76 09/19/24 03:13 147/95 H 09/19/24 02:32 36.6 C 72 22 175/79 H 92 Room Air 09/18/24 23:14 36.9 C 73 18 146/97 H 95 Room Air PG Care Time/CCT Total # of Minutes Spent Total Time Spent with Patient: Total time spent is greater than 50% in coordination of care (as documented) at patient's floor/unit and/or counseling patient: Coding Level of Care Code 00373 SUB INP/OBS CARE 2/35MIN Diagnoses Flank Pain R10.9 Ureteral stent present Z96.0
[2024-09-19 11:06] VITALS: BP 176/84; PULSE 81; RESP 19; TEMP 98.2
[2024-09-19] MEDS: cefTRIAXone SODIUM 2,000 MG/50 ML BAG IV SCH (11:51)
--- NOTE | 2024-09-19 14:30 | Discharge Summary ---
Date of Service September 19, 2024 Admission HPI Per Admitting Provider 34 y/o with a complicated urologic history presents with refractory flank pain. Patient does follow with urology. Has had multiple stents placed in the past. Most recent right - 3 weeks ago, left 09/15. Has had significant pain since this stent was placed. Was told to increase his oxycodone to 10 mg and is now out. He took his ibuprofen, toradol, and tylenol this morning without significant improvement. Pain was not controlled, so he was concerned that there may be something wrong with the stent. This prompted eval in the ED. Does have dysuria and hematuria. No fevers or chills. Minimal nausea. Most concerning feature is the pain. In the ED: CT with signs of left pyelo. Given morphine 2 mg, fentanyl 25 mcg x 2. ED provider discussed with on-call urologist - start abx and urology will see him. Hospitalist team consulted for admission for pain control and management of pyelonephritis. Admission Exam Per Admitting Provider Gen: tired and uncomfortable appearing patient in NAD HEENT: AT NC MMM Resp: CTAB no wheezing no increased work of breathing CV: RRR no m/r/g clinically well perfused Abd: +BS, soft, no peritoneal signs, non-distended, deferred CVA tenderness testing due to known stents and significant pain MSK: no obvious deformities Skin: no rashes or bruising Neuro: alert and oriented Psych: appropriate mood and affect Principal Diagnosis intractable flank pain Discharge Exam Gen: Well-appearing HEENT: NCAT CV: RRR, no m/r/g, S1/S2 normal Resp: CTAB, symmetrical chest rise, breathing non-labored Abd: Soft, NT/ND, +BS, no SP or CVA tenderness Skin: Warm, dry, pink, no rashes or lesions Neuro: AOx3, CN II-XII grossly intact Discharge Data Allergies Allergy/AdvReac Type Severity Reaction Status Date / Time No Known Allergies Allergy Verified 09/16/24 08:59 Consultations 09/18/24 11:57 ED Decision to Admit Stat 09/18/24 12:04 Consult Urology Stat Ordered Studies 09/18/24 09:44 CT Abd and Pelvis [CT abd pelvis IV con only] Stat Hospital Course (1) Flank Pain: (2) Ureteral stent present: Plan #Recent history of stent placement #Refractory flank pain - H/o multiple prior kidney stones requiring stent placement. Currently has bilateral ureteral stents in place, appropriately positioned per CT. On pyridium, oxycodone, ibuprofen, toradol, and tylenol for pain control outpatient - Initially rx'd 5mg oxy q6h prn, which was increased to 10mg q6h. Pt ran out and other meds did not improve pain - UA suggestive of infection. UCx and BCx with NGTD. Pt started on empiric abx with CTX, given 2 doses by time of discharge - Transitioned to po abx with cefdinir 300mg bid x 3 days, last dose being 09/22 PM, for total 5d abx course - Pain controlled during admission with Dilaudid (0.5 mg, 1 mg, 2 mg per pain s ramya). Discharged on po equivalent, with 5mg oxy q4h prn. Advised pt to also regularly take tylenol - Urology was consulted, agreed with plan to d/c on po pain control regimen & short course of po abx. Plan for stent removal on 09/23 #Constipation - Significant stool burden noted on imaging. Has been on opioids, which is likely contributing. Given 2 x 17 gm Miralax #HTN - With large narcotic medication need and risk of hypotension, amlodipine held during stay #Mood Disorder - Continue Lexapro Total Time Total Time Spent Total Time Spent (In Minutes): See attending documentation Discharge Plan Discharge Items Patient Disposition: Home - Self-Care Reason For Visit: PYELO Discharge Diagnosis: intractable flank pain Condition on Discharge: Good Activity: Per Instructions section Non-emergency contact: Primary Care Provider and Urologist Call non-emergency contact if: you have any medication questions, your symptoms worsen, your pain is not controlled and you have a fever Follow-up/Referrals: Maikol Patel DO [Primary Care Provider] - 09/23/24 9:30 am (Primary Care hospital follow up scheduled on 09/23/24 at 9:30 with Thad ESTEBAN) Diet: Regular Addtl Attending Provider Instructions: You came to the hospital for significant flank pain that was not relieved by multiple medications, and were admitted for potential pyelonephritis. You were seen by urology and treated with IV antibiotics for 2 days and IV pain medication. You were deemed safe for discharge when you were afebrile with pain control and a plan in place to treat potential infection. Medications Your medication list has been reviewed and reconciled. An updated list is included with your discharge paperwork; please review this list closely and make note of any changes. We sent a prescription for cefdinir to your [facility] pharmacy.Take one 300mg capsule twice a day for 3 more days. Because you had a dose of IV antibiotics today, your first dose of cefdinir will be tomorrow morning, and your last dose should be 09/22 PM. We also sent a prescription for 5mg oxycodone to be taken every 4 hours. It is also acceptable to take 10mg of oxycodone along with 1000mg tylenol every 6-8 hours as needed to control your pain. Take your medications as instructed; do not skip a dose. Make sure all of your doctors know every medicine you are taking (including [id number] medicines, vitamins, and supplements). Follow-up appointments: Make a follow-up appointment with your PCP within the next week. It is very important that you follow up with them shortly after discharge from the hospital. You have an appointment with urology on 09/23 at 8am for stent removal. Keep all your follow-up appointments as already scheduled. If you cannot make an appointment, notify your provider. Please bring a copy of this discharge summary with you to your next office appointment so that your provider can review it at that time and stay updated on your hospitalization and potential changes in your care. Contact your PCP or urologist if your symptoms return or worsen. Call 911 or go to the ER if you experience any of the following: Fevers, with or without flank pain and urinary symptoms Sudden, severe abdominal pain or nausea/vomiting Severe chest pain, or chest pain that radiates (moves) to your jaw or arm Sudden, severe shortness of breath or difficulty breathing Thank you for allowing us to participate in your care. Pending Studies at Discharge: Yes Stand-Alone Forms: My alaTest, Smoking Cessation Medications and DC Order Prescriptions: New cefdinir 300 mg capsule 300 mg PO BID 3 Days Qty: 6 0RF Continued (DME) Knee Scooter Misc See Rx Instructions .ROUTE .MEDSUPPLY Qty: 1 0RF Rx Instructions: As directed escitalopram oxalate [Lexapro] 20 mg tablet 20 mg PO QAM 90 Days Qty: 90 3RF Hold Instructions: Home Medication placed on hold at Doctor's office (DME) Walking Cane [facility] See Rx Instructions .ROUTE .MEDSUPPLY Qty: 1 0RF Rx Instructions: As directed (DME) Ultra-Light Rollator [facility] [place] See Rx Instructions .Route Qty: 1 0RF Rx Instructions: As directed amlodipine 5 mg tablet 5 mg PO QAM Qty: 90 3RF ondansetron 8 mg tablet,disintegrating 8 mg PO Q8H PRN (Reason: nausea and vomiting) Qty: 30 0RF phenazopyridine [Pyridium] 200 mg tablet 200 mg PO Q8H PRN (Reason: pain) Qty: 10 0RF tamsulosin 0.4 mg capsule 0.4 mg PO HS Qty: 30 0RF ketorolac 10 mg tablet 10 mg PO Q8H PRN (Reason: Pain) Changed oxycodone 5 mg tablet 5 mg PO Q4H PRN (Reason: pain) Qty: 30 0RF Discharge Orders: Discharge Order (Routine); Ordered 09/19/24 Ordered By: Lori Mays Admission Data Admit Date/Time: 09/18/24 12:16 Attending Provider: Guy Eisenberg Admit Provider: Queta Gallagher Primary Care Provider: Maikol Patel Other Providers: Farshad Jones; Marcus Cook Other Interventions: Discharge Summary Assessment (RN) Last Done: 09/19/24 13:00 Supervising Physician Co-Signing Physician Notes Attending attestation Pt seen and examined in concert with Dr. Mays. In agreement with the documented findings as noted in the resident documentation with any exceptions or additions as noted here. At time of examination, patient standing at bedside reporting pain well controlled on present regimen. VS as noted. On examination, S1/S2 nl RRR no MCG. CTAB. Abd NT/ND BS+ve Intractable pain in the setting of nephrolithiasis s/p stent placement - urology consult - pain control regimen with oxycodone 5mg q4PRN with 1000mg APAP q8h. UTI - transitioned to cefdinir to complete course as noted. Constipation - bowel regimen w/ improvement, monitor closely HTN - restart amlodipine at outpatient w/ precautions for hypertensive sx Else see resident documentation as noted. Total attending physician time spent with this patient's care on the day of discharge: 35 minutes. Resident Activity Tracking Resident Involvement: Resident Care Provided Care Provided: Adult [facility]
== END 2024-09-19 14:06 | disposition home or self-care (01) | DRG 661 ==
LOC: ED 09:27 → INTOOBSV 12:16 → SUATTDRO 12:16 → 2E 12:16